=== PATIENT | female | born 1980 | race Caucasian/White ===

== ENCOUNTER 2016-11-07 14:51 | Outpatient (CLI) | payer OTHER ==
--- NOTE | 2016-11-07 15:10 | DI ---
EXAM: PA and lateral views of the chest HISTORY: Immunosuppressed COMPARISON: None FINDINGS: The cardiomediastinal silhouette is normal. There is no pneumothorax or pleural effusion . There is no consolidation, nodule or mass. The osseous structures are unremarkable. IMPRESSION: No acute cardiopulmonary process
== END 2016-11-07 14:52 | disposition home or self-care (01) ==
LOC: RAD 14:51
PROVIDERS: ATTEND Nurse Practitioner Family
DX: K50.00 Crohn's disease of small intestine without complications (principal)

== ENCOUNTER 2017-01-24 10:22 | Outpatient (CLI) ==
[2017-01-24 10:39] LABS: BASOPHILS % (AUTO) 0.3 % (0.0-3.0); EOSINOPHILS # (AUTO) 0.1 K/ul (0.0-0.7); HEMATOCRIT 37.5 % (37.0-47.0); HEMOGLOBIN 12.9 g/dl (12.0-16.0); IMMATURE GRANULOCYTE % (AUTO) 0.5 % (0.0-5.0); LYMPHOCYTES # (AUTO) 0.7 K/uL (0.60-3.4); LYMPHOCYTES % (AUTO) 11.4 (10.0-50.0); MEAN CORPUSCULAR HEMOGLOBIN 30.9 pg (27.0-31.0); MEAN CORPUSCULAR HGB CONC 34.4 (31.8-35.4); MEAN CORPUSCULAR VOLUME 89.9 fl (81.0-99.0); MONOCYTES # (AUTO) 0.4 K/uL (0.4-2.0); MONOCYTES % (AUTO) 6.3 (0-10); NEUTROPHILS # (AUTO) 4.9 K/ul (2.0-6.9); NEUTROPHILS % (AUTO) 80.5; PLATELET COUNT 218 10^3/uL (140-440); RED BLOOD COUNT 4.17 10^6/ul (4.20-5.40); WHITE BLOOD COUNT 6.03 K/ul (4.6-10.2)
[2017-01-24 10:54] LABS: ALBUMIN 3.8 g/dL (3.4-5.0); ALBUMIN/GLOBULIN RATIO 1.15; ANION GAP 16.9; BILIRUBIN,TOTAL 0.56 mg/dL (0.00-1.20); BUN/CREATININE RATIO 13.33; CALCIUM 9.2 mg/dL (8.2-10.2); CREATININE 0.75 mg/dL (0.60-1.30); POTASSIUM 3.9 mmol/L (3.5-5.10); TOTAL PROTEIN 7.1 g/dL (6.4-8.2)
== END 2017-01-24 10:23 | disposition home or self-care (01) ==
LOC: LAB 10:22
PROVIDERS: ATTEND Internal Medicine Gastroenterology
DX: K50.90 Crohn's disease, unspecified, without complications (principal)
CPT/HCPCS: 36415; 80053; 85025

== ENCOUNTER 2017-03-19 08:05 | Day surgery (SDC) | payer OTHER ==
[2017-03-19 09:23] LABS: URINE PREGNANCY INTERNAL QC INTERNAL QC VALID
[2017-03-19] MEDS ORDERED: VERSED ONE (10:16)
[2017-03-19] MEDS ORDERED: DIPRIVAN 20 ML VIAL IVP ONE (10:16)
[2017-03-19 11:20] LABS: BASOPHILS % (AUTO) 0.2 % (0.0-3.0); EOSINOPHILS % (AUTO) 0.6 % (0.0-7.0); HEMATOCRIT 36.9 % (37.0-47.0); IMMATURE GRANULOCYTE % (AUTO) 0.2 % (0.0-5.0); LYMPHOCYTES # (AUTO) 0.5 K/uL (0.60-3.4); LYMPHOCYTES % (AUTO) 9.9 (10.0-50.0); MEAN CORPUSCULAR HEMOGLOBIN 31.2 pg (27.0-31.0); MEAN CORPUSCULAR HGB CONC 35.2 (31.8-35.4); MEAN CORPUSCULAR VOLUME 88.5 fl (81.0-99.0); MONOCYTES # (AUTO) 0.2 K/uL (0.4-2.0); MONOCYTES % (AUTO) 4.3 (0-10); NEUTROPHILS # (AUTO) 4.5 K/ul (2.0-6.9); NEUTROPHILS % (AUTO) 84.8; PLATELET COUNT 181 10^3/uL (140-440); RED BLOOD COUNT 4.17 10^6/ul (4.20-5.40); WHITE BLOOD COUNT 5.34 K/ul (4.6-10.2)
[2017-03-19 11:40] LABS: ALBUMIN 3.7 g/dL (3.4-5.0); ALBUMIN/GLOBULIN RATIO 1.06; ANION GAP 13.9; BILIRUBIN,TOTAL 1.16 mg/dL (0.00-1.20); BUN/CREATININE RATIO 10.81; CREATININE 0.74 mg/dL (0.60-1.30); POTASSIUM 3.9 mmol/L (3.5-5.10); TOTAL PROTEIN 7.2 g/dL (6.4-8.2)
[2017-03-19 12:37] VITALS: BP 103/66; TEMP 98
--- NOTE | 2017-03-20 10:29 | OP ---
INDICATIONS FOR PROCEDURE: 37 year old female presents for surveillance exam. She has a history of Crohn's diagnosed approximately 10 years ago. She feels relatively well. MEDICATIONS: SEE ANESTHESIA NOTES. PROCEDURE: COLONOSCOPY, BIOPSIES AND SNARE POLYPECTOMY. REPORT: The risks, benefits, alternatives and limitations were discussed in detail with the patient. Informed consent was obtained. After adequate sedation was achieved, a digital rectal exam revealed good tone, no masses. The colonoscope was introduced into the rectum and advanced under direct visual guidance to the cecum. The cecum was identified by the appendiceal orifice and IC valve. Her IV valve appeared a little deformed. I was only able to get the tip of the scope in the very distal ileum. Here I could see active inflammation consistent with ulcerations in very distal ileum. I could not advance the scope any further into the GI secondary to some mild stenosis and the location of the IC valve in retroflex position. I was able to get two little biopsy for histological review. I then withdrew the scope back into the colon. I then slowly withdrew the scope in circumferential manner and examined the mucosa quite carefully. I looked on the proximal and distal sides of the folds and flexures as best as possible. I took some random biopsies from the cecum and rectum for histological review. In the proximal transverse colon there was about a 3mm polyp that I removed by snare technique and the tissue was retrieved. No other abnormalities were noted included on retroflex view of the anal canal. The prep was adequate. The withdraw time was 18 minutes and 56 seconds. The patient tolerated the procedure well with stable vital signs and pulse oximetry throughout. IMPRESSION: 1. Moderately active Crohn's in the terminal ileum 2. Small diminutive polyp removed from the proximal transverse RECOMMENDATIONS: 1. Await polyp pathology 2. Wait colon biopsies and terminal ileum biopsies 3. We will send off to [facility], a TPMT metabolite level 4. Once I get the [facility] results back if there is room to increase her Imuran we will contact her and increase her Imuran dose. 5. Otherwise I am going to see her in the office in approximately 6 weeks and if we can't increase Imuran dose we will discuss alternative options for treatment of Crohn's such as Humira. 6. We will also check her CBC and CMP and C-reactive protein CC: Dr. Julian HARMAN
== END 2017-03-19 12:00 | disposition home or self-care (01) ==
LOC: SURG 08:05
PROVIDERS: ATTEND Internal Medicine Gastroenterology
DX: K50.00 Crohn's disease of small intestine without complications (principal); D12.7 Benign neoplasm of rectosigmoid junction; D12.0 Benign neoplasm of cecum; D12.3 Benign neoplasm of transverse colon; D13.39 Benign neoplasm of other parts of small intestine
CPT/HCPCS: 36415; 80053; 81025; 85025; 86140

== ENCOUNTER 2017-04-26 14:08 | Outpatient (CLI) ==
[2017-04-26 14:17] LABS: BASOPHILS % (AUTO) 0.4 % (0.0-3.0); EOSINOPHILS # (AUTO) 0.1 K/ul (0.0-0.7); EOSINOPHILS % (AUTO) 2.3 % (0.0-7.0); HEMATOCRIT 37.4 % (37.0-47.0); HEMOGLOBIN 12.6 g/dl (12.0-16.0); IMMATURE GRANULOCYTE % (AUTO) 0.6 % (0.0-5.0); LYMPHOCYTES # (AUTO) 0.7 K/uL (0.60-3.4); MEAN CORPUSCULAR HEMOGLOBIN 30.7 pg (27.0-31.0); MEAN CORPUSCULAR HGB CONC 33.7 (31.8-35.4); MEAN CORPUSCULAR VOLUME 91.2 fl (81.0-99.0); MONOCYTES # (AUTO) 0.3 K/uL (0.4-2.0); MONOCYTES % (AUTO) 6.2 (0-10); NEUTROPHILS # (AUTO) 4.1 K/ul (2.0-6.9); NEUTROPHILS % (AUTO) 76.5; PLATELET COUNT 214 10^3/uL (140-440); WHITE BLOOD COUNT 5.29 K/ul (4.6-10.2)
[2017-04-26 14:42] LABS: ALBUMIN 3.5 g/dL (3.4-5.0); ALBUMIN/GLOBULIN RATIO 1.06; ANION GAP 13.7; BILIRUBIN,TOTAL 0.5 mg/dL (0.00-1.20); BUN/CREATININE RATIO 15.27; CALCIUM 9.2 mg/dL (8.2-10.2); CREATININE 0.72 mg/dL (0.60-1.30); POTASSIUM 3.7 mmol/L (3.5-5.10); TOTAL PROTEIN 6.8 g/dL (6.4-8.2)
== END 2017-04-26 14:09 | disposition home or self-care (01) ==
LOC: LAB 14:08
PROVIDERS: ATTEND Internal Medicine Gastroenterology
DX: K50.00 Crohn's disease of small intestine without complications (principal)
CPT/HCPCS: 36415; 80053; 85025

== ENCOUNTER 2017-05-23 10:37 | Outpatient (CLI) | END 2017-05-23 10:38 | disposition home or self-care (01) | LOC: LAB 10:37 | PROVIDERS: ATTEND Internal Medicine Gastroenterology | DX: K50.00 Crohn's disease of small intestine without complications (principal) | CPT/HCPCS: 36415 ==

== ENCOUNTER 2017-09-10 16:15 | Outpatient (CLI) | payer OTHER | END 2017-09-10 16:16 | disposition home or self-care (01) | LOC: LAB 16:15 | PROVIDERS: ATTEND Internal Medicine Gastroenterology | DX: K50.00 Crohn's disease of small intestine without complications (principal) | CPT/HCPCS: 36415; 80053; 85025 ==

== ENCOUNTER 2018-02-11 06:58 | Outpatient (CLI) | END 2018-02-11 06:59 | disposition home or self-care (01) | LOC: LAB 06:58 | PROVIDERS: ATTEND Family Medicine | DX: D64.9 Anemia, unspecified (principal); R55 Syncope and collapse; K50.00 Crohn's disease of small intestine without complications | CPT/HCPCS: 36415; 80053; 82607; 82728; 82746; 82951; 83540; 83550; 84443; 85025; 85045 ==

== ENCOUNTER 2018-02-18 12:06 | Outpatient (CLI) ==
[2018-02-18 16:28] VITALS: BMI 19.5
== END 2018-02-18 12:07 | disposition home or self-care (01) ==
LOC: DIETCN 12:06
PROVIDERS: ATTEND Family Medicine
DX: E16.2 Hypoglycemia, unspecified (principal)

== ENCOUNTER 2018-02-20 12:29 | Outpatient (CLI) | payer OTHER ==
--- NOTE | 2018-02-24 11:18 | HOLTER ---
PATIENT INFORMATION AND COMMENTS Attending Physician: GRAYSON HART Indications: SYNCOPE __ Patient Medications: WAL-ITIN, IRON, AZATHIOPRINE, PENTASA, [id number], CALCIUM, B12, FLUTICASONE __ Pre-procedure Summary: Protocol: Standard Heart Rate Started: 02/20/18 1328 Minimum: 53 BPM Weight: 125 LBS Ended: 02/21/18 1317 Maximum: 147 BPM Height: 68" Duration: 24 HOURS Average: 83 BPM _ INTERPRETATIONS/OBSERVATIONS: 1. BASIC RHYTHM: SINUS, RATE 50 BPM TO 145 BPM, AVERAGE 85 BPM 2. RARE PAC'S AND PVC'S 3. NO ST-T WAVE CHANGES FROM BASELINE 4. ACTIVITY LOG NOT MAINTAINED MTDD
== END 2018-02-20 12:30 | disposition home or self-care (01) ==
LOC: CAR 12:29
PROVIDERS: ATTEND Family Medicine
DX: R55 Syncope and collapse (principal)
CPT/HCPCS: 93227

== ENCOUNTER 2018-04-01 08:18 | Day surgery (SDC) | payer OTHER ==
[2018-04-01 09:13] VITALS: TEMP 98.7
[2018-04-01 09:21] LABS: URINE PREGNANCY TEST NEGATIVE (NEGATIVE)
[2018-04-01] MEDS ORDERED: DIPRIVAN 20 ML VIAL IVP ONE (09:22)
[2018-04-01] MEDS ORDERED: VERSED ONE (09:22)
--- NOTE | 2018-04-02 11:58 | OP ---
INDICATIONS FOR PROCEDURE: 38-year-old female presents for colonoscopy evaluation of Crohn's disease. She has a 10+ year history of Crohn's. One year ago she underwent colonoscopy finding active disease in the terminal ileum. Her Imuran was increased to 150 mg. She has been doing well other than some diarrhea over the last few weeks she states. She is scheduled for colonoscopy investigation. MEDICATIONS: SEE ANESTHESIA NOTES. PROCEDURE: COLONOSCOPY, BIOPSY. REPORT: The risks, benefits, alternatives and limitations were discussed in detail with the patient. Informed consent was obtained. After adequate sedation was achieved, a digital rectal exam revealed good tone, no masses. The colonoscope was introduced into the rectum and advanced under direct visual guidance to the cecum. The cecum was identified by the appendiceal orifice and IC valve. The IC valve was somewhat distorted. I was able to get the tip of the scope into the distal terminal ileum. There was small ulcerations present consisting of active Crohn's. I cannot advance the scope any further as there was some stenosis at th IC valve. I was able to biopsy the terminal ileum. I then slowly withdrew the scope back into the cecum where I obtained biopsies of the cecum. The cecum appeared unremarkable. I then slowly withdrew the scope through the colon looking on the proximal and distal side of folds and flexures as best as possible. I was able to retroflex the scope in the right colon and left colon to increase visualization. The colonic mucosa was unremarkable its entire length including on retroflex view of the anal canal. The prep was good. The withdrawal time was 11 minutes and 7 seconds. The patient tolerated the procedure well with stable vital signs and pulse oximetry throughout. IMPRESSION: 1. MODERATE ACTIVE INFLAMMATION IN THE VERY DISTAL TERMINAL ILEUM. 2. ONLY THE DISTAL COUPLE CENTIMETERS OF THE ILEUM COULD BE EVALUATED WITH STENOSIS PRESENT AT THE ILEUM. THIS WAS MILD TO MODERATE STENOSIS. 3. RELATIVELY UNCHANGED FROM ONE YEAR AGO. RECOMMENDATIONS: 1. Await pathology results. 2. I will have her followup in the office in 6 to 8 weeks. We can discuss treatment options such as adding Humira to her medical regimen or go on a different route. 3. Repeat colonoscopy in one year and sooner as directed. cc: Dr. Julian HARMAN
[2018-04-03 12:37] VITALS: BP 121/67
== END 2018-04-01 10:40 | disposition home or self-care (01) ==
LOC: SURG 08:18
PROVIDERS: ATTEND Internal Medicine Gastroenterology
DX: K50.00 Crohn's disease of small intestine without complications (principal); K56.699 Other intestinal obstruction unspecified as to partial versus complete obstruction
CPT/HCPCS: 81025

== ENCOUNTER 2018-08-08 11:16 | Outpatient (CLI) | payer OTHER | END 2018-08-08 11:17 | disposition home or self-care (01) | LOC: LAB 11:16 | PROVIDERS: ATTEND Internal Medicine Gastroenterology | DX: Z51.81 Encounter for therapeutic drug level monitoring (principal); Z79.899 Other long term (current) drug therapy | CPT/HCPCS: 36415; 80053; 85025; 86140; 86706; 86708 ==

== ENCOUNTER 2018-09-22 09:10 | Outpatient (CLI) | END 2018-09-22 09:11 | disposition home or self-care (01) | LOC: LAB 09:10 | PROVIDERS: ATTEND Internal Medicine Gastroenterology | DX: K50.00 Crohn's disease of small intestine without complications (principal) | CPT/HCPCS: 36415; 80053; 85025 ==